=== PATIENT | female | born 2000 | race Two or more races ===

== ENCOUNTER 2024-04-17 01:22 | Emergency (ER) | payer OTHER ==
[~2024-04-17] VITALS: Ht 170.2 cm; Wt 63.0 kg
[2024-04-17 01:41] VITALS: BP 124/76; PULSE 80; RESP 16; TEMP 98.2; O2SAT 98
[2024-04-17] MEDS ORDERED: SODIUM CHLORIDE 0.9% 1,000 ML IV ONE (01:45)
[2024-04-17] MEDS ORDERED: ACETAMINOPHEN 325MG TABLET PO ONE (01:45)
== END 2024-04-17 04:38 | disposition left against medical advice (07) ==
LOC: ER 01:22
DX: F41.9 Anxiety disorder, unspecified (principal); F12.90 Cannabis use, unspecified, uncomplicated
CPT/HCPCS: 99283; J7030